=== PATIENT | male | born 1970 | race Caucasian/White ===

== ENCOUNTER 2016-06-18 11:35 | Emergency (ER) | payer SELFPAY ==
[~2016-06-18] VITALS: Ht 170.2 cm; Wt 75.0 kg
[~2016-06-18 11:35] MED LIST: BACT800T5 PO; CLIN150 PO; IBUP-232 PO; MUPI2%T TOPICAL
[2016-06-18 11:37] VITALS: BP 132/80; PULSE 75; RESP 14; TEMP 98.1; O2SAT 95
--- NOTE | 2016-06-18 12:59 | PD ---
HPI Chief Complaint: Injury Time Seen by Provider: 12:54 Travel History International Travel<30 days: No Contact w/Intl Traveler<30days: No Traveled to known affect area: No History of Present Illness HPI 46-year-old right-hand dominant male presents to the ED for evaluation of left shoulder pain. Onset tonight after falling backwards and landing on a steel bumper. Patient denies hitting his head, loss of consciousness or any other musculoskeletal complaint. He endorses 6/10 left-sided pain in the shoulder, worse with attempted range of motion. Denies numbness, tingling, weakness of the extremity. Denies previous injury to the shoulder. No treatment attempted at home. He rode his bicycle to the ED for treatment today. [facility] Social History Alcohol Use: No Tobacco Use: Yes Allergies-Medications (Allergen,Severity, Reaction): Coded Allergies: *MDRO Multi-Drug Resistant Organism (Verified Adverse Reaction, Unknown, ) MRSA (arm-05/21/16) Reported Meds & Prescriptions Reported Meds & Active Scripts Active Naproxen 500 Mg Tab 500 Mg PO BID Review of Systems Except as stated in HPI: all other systems reviewed are Neg Physical Exam Narrative GENERAL: Well-nourished, well-developed disheveled white male in no acute distress. SKIN: Warm and dry. Multiple tattoos. HEAD: Normocephalic. EYES: No scleral icterus. No injection or drainage. NECK: Supple, trachea midline. No JVD or lymphadenopathy. CARDIOVASCULAR: Regular rate and rhythm without murmurs, gallops, or rubs. RESPIRATORY: Breath sounds equal bilaterally. No accessory muscle use. GASTROINTESTINAL: Abdomen soft, non-tender, nondistended. MUSCULOSKELETAL: No cyanosis, or edema. FOCUSED LEFT UPPER EXTREMITY EXAM: Tender to palpation over the scapula and the acromioclavicular joint. No tenderness to palpation of the elbow or wrist. Patient has difficulty flexing the arm above 90. Strong production line welder strength. 2+ radial pulse. Sensation intact to light touch distally. BACK: Nontender without obvious deformity. No CVA tenderness. Data Data Last Documented VS Vital Signs Date Time Temp Pulse Resp B/P Pulse Ox O2 Delivery O2 Flow Rate FiO2 06/18/16 11:37 98.1 75 14 132/80 95 Room Air Orders Scapula (06/18/16 12:51) Shoulder, Complete (>2vws) (06/18/16 12:51) Splint Or Brace Apply/Monitor (06/18/16 13:43) MDM Medical Decision Making Medical Screen Exam Complete: Yes Emergency Medical Condition: Yes Differential Diagnosis Musculoskeletal pain versus ligamentous injury versus tendinous injury versus fracture versus other Narrative Course 46-year-old right-hand dominant male presents to the ED for evaluation of left shoulder pain. Onset tonight after falling backwards and landing on a steel bumper. Patient denies hitting his head, loss of consciousness or any other musculoskeletal complaint. He endorses 6/10 left-sided pain in the shoulder, worse with attempted range of motion. Denies numbness, tingling, weakness of the extremity. Vitals reviewed and are within normal limits. Physical exam reveals a disheveled white male in no acute distress. Focused exam of the left upper extremity reveals tenderness to palpation of the acromioclavicular joint, some weakness when attempting abduction beyond 90. Strength 5/5 biceps, triceps, production line welder strength. Neurovascularly intact. When I entered the room the patient was sleeping. When I went to report his x-ray findings he was also asleep. He rode his bike to the ED for evaluation. As a musculoskeletal pain secondary to a fall, possible ligamentous injury. The patient was provided with a sling and brief course of anti-inflammatory medications. He is instructed to follow-up with the orthopedist for further evaluation. He indicated understanding of the instructions, and was amenable to plan of care. This patient is stable and discharged home. Diagnosis Primary Impression: Pain of left shoulder joint on movement Referrals: Orthopedist Patient Instructions: General Instructions, Shoulder Pain (ED) Additional Instructions: Rest, hydrate. Rest, ice, elevation of the extremity may help to reduce pain and swelling. No overuse or heavy lifting until cleared by orthopedist. Take anti-inflammatories as prescribed. Its possible this may be a ligamentous injury which can be diagnosed with an outpatient MRI. Follow-up with the orthopedist this week. Return to the ED for any urgent or emergent medical condition. Med/Other Pt SpecificInfo: Prescription(s) given Scripts Naproxen 500 Mg Nep768 Mg PO BID #20 TAB Ref 0 Prov:Olive Jerry MD 06/18/16 Disposition: 01 DISCHARGE HOME Condition: Stable Candis King Jun 18, 2016 12:59
--- NOTE | 2016-06-18 13:32 | RADRPT ---
EXAM DATE/TIME: 06/18/2016 13:26 [facility] COMPARISON: No previous studies available for comparison. INDICATIONS : Left shoulder pain, fall. MEDICAL HISTORY : None. SURGICAL HISTORY : None. ENCOUNTER: Initial ACUITY: 2 days PAIN SCORE: 10/10 LOCATION: Left shoulder FINDINGS: Two view examination of the left scapula demonstrates no evidence of fracture. The glenohumeral and acromioclavicular joints are maintained. Bony mineralization is normal. CONCLUSION: Unremarkable examination of the left scapula. Beth Mcguire MD on June 18, 2016 at 13:30 Board Certified Radiologist. This report was verified electronically.
--- NOTE | 2016-06-18 13:32 | RADRPT ---
EXAM DATE/TIME: 06/18/2016 13:18 [facility] COMPARISON: No previous studies available for comparison. INDICATIONS : Left shoulder pain, fall. MEDICAL HISTORY : None. SURGICAL HISTORY : None. ENCOUNTER: Initial ACUITY: 2 days PAIN SCORE: 10/10 LOCATION: Left shoulder FINDINGS: Multiple view examination of the left shoulder demonstrates no evidence of fracture or dislocation. The glenohumeral and acromioclavicular joints are maintained. There is normal range of motion betwee n internal and external rotation. Bony mineralization is normal. CONCLUSION: Unremarkable examination of the left shoulder. Beth Mcguire MD on June 18, 2016 at 13:30 Board Certified Radiologist. This report was verified electronically.
[2016-06-18] MEDS ORDERED: NAPR500T PO (13:46)
== END 2016-06-18 15:05 | disposition home or self-care (01) ==
LOC: NEPB 11:35
DX: M25.512 Pain in left shoulder (principal); W18.30XA Fall on same level, unspecified, initial encounter; Y93.9 Activity, unspecified; Y92.9 Unspecified place or not applicable
CPT/HCPCS: 73010; 73030; 99283

== ENCOUNTER 2017-08-04 16:15 | Emergency (ER) | payer SELFPAY ==
[~2017-08-04] VITALS: Ht 170.2 cm; Wt 73.0 kg
[~2017-08-04 16:15] MED LIST changes: -BACT800T5 PO; -CLIN150 PO; -IBUP-232 PO; -MUPI2%T TOPICAL; +NAPR500T2 PO
[2017-08-04 16:58] VITALS: BP 96/55; PULSE 52; RESP 16; TEMP 97.5; O2SAT 98
[2017-08-04] MEDS ORDERED: LIDOCAINE HCL 1% 50 ML VIAL INFIL ONE (17:15)
[2017-08-04] MEDS ORDERED: CEPHALEXIN MONOHYDRATE 500 MG CAP PO ONE (17:45)
[2017-08-04] MEDS ORDERED: CEPH-460 PO (17:49)
--- NOTE | 2017-08-04 17:49 | PD ---
HPI Chief Complaint: Laceration/Skin Injury Time Seen by Provider: 17:10 Travel History International Travel<30 days: No Contact w/Intl Traveler<30days: No Traveled to known affect area: No History of Present Illness HPI 47-year-old male here for evaluation of a right hand laceration. The patient reports that about 2 hours ago while working on a motorcycle he sustained a laceration to his right palm on a sharp piece of metal. He cleansed the wound out with hydrogen peroxide and soap and water and applied a dressing and finished working on his motorcycle. Pain is 7 out of 10, constant, worse with movements. He is not on any medications. States his last tetanus was 3 years ago. No other injuries. No paresthesias or motor deficits in the right hand. He is right-hand dominant. [facility] Past Medical History Medical History: Denies Significant Hx Tetanus Vaccination: Unknown Influenza Vaccination: No Past Surgical History Surgical History: No Previous Surgery Social History Alcohol Use: No Tobacco Use: Yes (1 PPD) Substance Use: No Allergies-Medications (Allergen,Severity, Reaction): Coded Allergies: *MDRO Multi-Drug Resistant Organism (Verified Adverse Reaction, Unknown, ) MRSA (arm-05/21/16) Reported Meds & Prescriptions Reported Meds & Active Scripts Active No Active Prescriptions or Reported Medications Review of Systems Except as stated in HPI: all other systems reviewed are Neg Physical Exam Narrative GENERAL: Well-developed, well-nourished, comfortable, no apparent distress. SKIN: Mid right palm there is a vertical laceration about 3 cm in length, moderate depth, no visible contaminants, no active bleeding, no bone or tendon exposure. CARDIOVASCULAR: Regular rate and rhythm. Normal capillary refill in right hand. RESPIRATORY: No accessory muscle use. MUSCULOSKELETAL: Skin exam as above. Normal range of flexion and extension in the right hand and fingers. NEUROLOGICAL: Awake and alert. Normal motor/sensation in the right hand. PSYCHIATRIC: Appropriate mood and affect; insight and judgment normal. Data Data Last Documented VS Vital Signs Date Time Temp Pulse Resp B/P (MAP) Pulse Ox O2 Delivery O2 Flow Rate FiO2 08/04/17 16:58 97.5 52 16 96/55 (69) 98 Orders Orders Lidocaine 1% Inj (50 Ml) (Xylocaine 1% I (08/04/17 17:15) Cephalexin (Keflex) (08/04/17 17:45) [facility] Medical Decision Making Medical Screen Exam Complete: Yes Emergency Medical Condition: Yes Differential Diagnosis Right hand laceration Narrative Course This is a 47-year-old male who sustained a right hand laceration. The depth of the wound is moderate, the laceration is vertical and is on his right mid palm. There are no visible contaminants. No tendon or bone exposure. The right hand is neurovascularly intact with normal motor. Laceration repaired by me with 8 simple interrupted sutures. See procedure note. He will be started on Keflex as prophylaxis. Suture removal in 10-14 days. He was advised to return to the emergency department for any signs of infection. He verbalizes understanding and agreement with plan. Procedures Procedure Narrative LACERATION LOCATION: Right hand/palm LENGTH: 3 cm NUMBER OF STITCHES/SARAHY: 8 simple interrupted sutures REPAIR: The area of the laceration was prepped with Betadine and sterilely draped. The laceration was infiltrated with 5 cc of lidocaine. The wound was copiously irrigated and explored without evidence of foreign body, tendon injury or neurovascular injury. The wound was closed using eight 4-0 nylon simple interrupted sutures. This was a single layer repair. A sterile dressing was applied. The patient was advised to keep the dressing clean and dry. Patient tolerated the procedure well. Diagnosis Primary Impression: Laceration of right hand Qualified Codes: S61.411A - Laceration without foreign body of right hand, initial encounter Referrals: Primary Care Physician 1 week Additional Instructions: Have sutures removed in 10-14 days. Take antibiotic as prescribed. Return to the emergency department for signs of infection or any other concerns. Scripts Cephalexin (Keflex) 500 Mg Cap 500 MG PO Q8H for Infection, #30 CAP 0 Refills Prov: Harish Wade MD 08/04/17 Disposition: 01 DISCHARGE HOME Condition: Stable Harish Wade MD Aug 04, 2017 17:49
== END 2017-08-04 18:19 | disposition home or self-care (01) ==
LOC: NEPD 16:15
DX: S61.411A Laceration without foreign body of right hand, initial encounter (principal); F17.210 Nicotine dependence, cigarettes, uncomplicated; W26.8XXA Contact with other sharp object(s), not elsewhere classified, initial encounter; Y93.89 Activity, other specified
CPT/HCPCS: 12002